=== PATIENT | male | born 1955 | race Caucasian/White ===

== ENCOUNTER 2017-12-12 19:58 | Emergency (ER) | payer OTHER ==
[~2017-12-12] VITALS: Ht 170.2 cm; Wt 77.1 kg
[2017-12-12] MEDS ORDERED: CIPRO500 MG (20:18)
[2017-12-12] MEDS ORDERED: CEFTIN125 MG/5 M (21:20)
== END 2017-12-13 19:07 | disposition home or self-care (01) ==
LOC: ER 19:58
DX: K29.70 Gastritis, unspecified, without bleeding (principal)

== ENCOUNTER 2021-08-04 06:00 | Day surgery (SDC) | payer OTHER ==
[~2021-08-04] VITALS: Ht 170.2 cm; Wt 73.9 kg
[~2021-08-04 06:00] MED LIST: CEFTIN125 MG/5 M; CIPRO500 MG; COZAA PO; COZAAR25 MG PO
== END 2021-08-04 13:50 | disposition home or self-care (01) ==
LOC: CIR.AMB 06:00
PROVIDERS: ATTEND Urology
DX: N21.0 Calculus in bladder (principal); Z20.822 Contact with and (suspected) exposure to COVID-19; I10 Essential (primary) hypertension

== ENCOUNTER 2022-09-21 10:02 | Inpatient (IN) | payer OTHER ==
[~2022-09-21] VITALS: Ht 170.2 cm; Wt 77.1 kg
[2022-09-28] MEDS ORDERED: ROSUVASTATIN CA40 MG (09:35)
== END 2022-09-29 11:40 | disposition home or self-care (01) | DRG 655 ==
LOC: O/R 09-28 05:30 → SURH 09-28 05:30
PROVIDERS: ADMIT Urology; ATTEND Urology
PROC: 0TJB8ZZ Inspection of Bladder, Via Natural or Artificial Opening Endoscopic (ICD-10-PCS; 2022-09-28)
PROC: 0TBB0ZZ Excision of Bladder, Open Approach (ICD-10-PCS; principal; 2022-09-28 11:15)
DX: T19.1XXA Foreign body in bladder, initial encounter (principal); Z20.822 Contact with and (suspected) exposure to COVID-19

== ENCOUNTER 2022-10-11 10:35 | Outpatient (CLI) | payer OTHER ==
[~2022-10-11 10:35] MED LIST changes: +ROSUVASTATIN CA40 MG
== END 2022-10-11 10:45 | disposition home or self-care (01) ==
LOC: TOM 10:35
PROVIDERS: ATTEND Urology
DX: R31.0 Gross hematuria (principal)
CPT/HCPCS: 72193; Q9965

== ENCOUNTER 2022-10-26 09:52 | Outpatient (CLI) | payer OTHER | END 2022-10-26 10:07 | disposition home or self-care (01) | LOC: TOM 09:52 | PROVIDERS: ATTEND Urology | DX: R31.0 Gross hematuria (principal) ==

== ENCOUNTER 2023-01-08 03:27 | Emergency (ER) | payer OTHER ==
[~2023-01-08] VITALS: Ht 170.2 cm; Wt 72.6 kg
[~2023-01-08 03:27] MED LIST changes: +DOCUSATE SODIU100 MG; +TAMSULOSIN HCL0.4 MG
== END 2023-01-08 07:45 | disposition home or self-care (01) ==
LOC: ER 03:27
DX: K29.70 Gastritis, unspecified, without bleeding (principal); Z88.8 Allergy status to other drugs, medicaments and biological substances; I10 Essential (primary) hypertension
CPT/HCPCS: 96365; 96372; 99284; J2405; J2765; J3490

== ENCOUNTER 2023-01-14 16:11 | Emergency (ER) | payer OTHER ==
[~2023-01-14] VITALS: Ht 172.7 cm; Wt 72.6 kg
[2023-01-14] MEDS ORDERED: TAMS0.4C PO (16:21)
[2023-01-14 17:20] LABS: HEMATOCRIT 44.1 % (39.0-48.0); HEMOGLOBIN 14.3 g/dL (13-16.00); MEAN CELL VOLUME 84.7 fL (80.0-100.00); MEAN CORPUSCULAR HEMOGLOBIN 27.5 pg (27.00-32.0); MEAN CORPUSCULAR HGB CONC 32.4 g/dl (32.0-36.0); PLATELET COUNT 282 K/uL (150-450)
[2023-01-14 17:47] LABS: ALBUMIN 3.4 gm/dL (3.4-5.0); BILIRUBIN TOTAL 0.61 mg/dL (0.3-1.2); BILIRUBIN,CONJUGATED 0.16 mg/dL (0.0-0.2); BILIRUBIN,UNCONJUGATED 0.45 mg/dL (0.0-0.6); CALCIUM 9.6 mg/dL (8.5-10.1); CREATININE SERUM 0.92 mg/dL (0.70-1.30); GFR 81.57; GLOBULINA 4.8 G/DL (2.4-3.5); POTASSIUM 3.7 mEq/L (3.5-5.1); TOTAL PROTEIN 8.2 gm/dL (6.4-8.2)
[2023-01-14] MEDS ORDERED: CARAFATE1 GM PO (20:00)
[2023-01-14] MEDS ORDERED: PEPCID AC20 MG PO (20:00)
[2023-01-14] MEDS ORDERED: ONDANSETRON ODT8 MG PO (20:01)
== END 2023-01-14 23:02 | disposition home or self-care (01) ==
LOC: ER 16:11
PROVIDERS: General Practice
DX: R10.13 Epigastric pain (principal); R11.2 Nausea with vomiting, unspecified; I10 Essential (primary) hypertension; Z20.822 Contact with and (suspected) exposure to COVID-19
CPT/HCPCS: 36415; 96365; 96366; 99284; J2405; J3490; J7030